=== PATIENT | female | born 1995 | race Caucasian/White ===

== ENCOUNTER 2024-12-15 06:05 | Emergency (ER) | payer SELFPAY ==
--- NOTE | 2024-12-15 06:08 | DI.RAD.S_ITS ---
PROCEDURE: XR CHEST 1V INDICATIONS: cough TECHNIQUE: One view of the chest was acquired. COMPARISON: None. FINDINGS: Surgical changes and devices: None. Lungs and pleura: Minimal streaky right lower lobe opacities. Mediastinum: Mediastinal contours appear normal. Heart size is normal. Bones and chest wall: No suspicious bony lesions. Overlying soft tissues appear unremarkable. IMPRESSION: Minimal right lower lobe streaky opacities possibly representing developing pneumonia. The above findings are concordant with preliminary report. Dictated by: Erica Pratt M.D. on 12/15/2024 at 8:21 Approved by: Erica Pratt M.D. on 12/15/2024 at 8:21
--- NOTE | 2024-12-15 06:12 | ED.URI ---
HPI - URI/Sore Throat General Chief Complaint: Upper Respiratory Symptoms Stated Complaint: Painful cough, phlegm, losing voice, x4days Time Seen by Provider: 12/15/24 06:10 History of Present Illness HPI Narrative: 29-year-old female without any significant past medical history presenting to the emergency department from home for evaluation of cough, sore throat. She states that this started on Friday, states that her symptoms have not gotten any better therefore decided come into the ED for further evaluation treatment. She states that she has been producing a lot of phlegm and feels like she is having a lot of chest congestion. However she denies any actual chest pain or shortness of breath. She denies any headache visual disturbances fever chills nausea vomiting abdominal pain or any other GI/ symptoms time. Related Data Previous Rx's Medication Instructions Recorded benzonatate 100 mg capsule 100 mg PO BID PRN cough 1 week #14 12/15/24 caps doxycycline hyclate 100 mg capsule 100 mg PO BID 5 days #10 caps 12/15/24 methylprednisolone 4 mg tablets in See Rx Instructions PO .COMPLEX 12/15/24 a dose pack (Medrol ([facility])) #21 ea Review of Systems Review of Systems Narrative: General: Denies fever, chills, weight loss HEENT: Positive sore throat, Denies headache, eye drainage, eye irritation, head trauma, voice change Cardiovascular: Denies any chest pain, palpitations, tachycardia Respiratory: Positive cough, Denies any shortness of breath, wheeze, stridor GI/: Denies any abdominal pain, nausea, vomiting, diarrhea, bright red blood per rectum, melanotic stools, urinary frequency, urinary retention, dysuria, hematuria MSK: Denies any joint pain, muscle pains, swelling Skin: Denies any rashes, lesions, discoloration Neuro: Denies any headache, lightheadedness, dizziness, fainting, weakness Psych: Denies SI/HI Exam Narrative Exam Narrative: General: Cooperative, well-developed, not in acute distress HEENT: Posterior oropharynx clear without any signs of obstruction uvula midline patient is speaking full sentences protecting airway, mild erythema noted but no purulent discharge noted Normocephalic, atraumatic, PERRLA, normal sclera, eyelids normal Neck: Active full range of motion, atraumatic Chest: Normal to inspection, negative crepitus, no overlying erythema ecchymosis Respiratory: Patient coughing on exam, Normal respiratory effort, not in acute respiratory distress, clear to auscultation bilaterally negative wheeze, tachypnea, rhonchi, rales Cardiology: Regular rate rhythm negative gallop, murmur, rubs GI/: No tenderness to palpation, soft, non rigid, normal to inspection, exam deferred MSK: Full active range of motion in all 4 extremities, atraumatic, no tenderness to palpation of any bony prominences Skin: No rashes or lesions noted Neuro: Alert awake oriented x3, moves all 4 extremities spontaneously, cranial nerves intact, able to answer all questions appropriately follows commands appropriately Psych: Cooperative, negative suicidal or homicidal ideations Initial Vital Signs Initial Vital Signs: Vital Signs Temperature 98.3 F 12/15/24 06:24 Pulse Rate 98 H 12/15/24 06:24 Respiratory Rate 16 12/15/24 06:24 Blood Pressure 149/96 H 12/15/24 06:24 Pulse Oximetry 99 12/15/24 06:24 Oxygen Delivery Method Room Air 12/15/24 06:24 Course Orders Ordered: ED Orders 12/15/24 06:08 CXR [XR chest 1V] Stat 12/15/24 06:15 Urine Culture Stat Urine Microscopic Stat 12/15/24 06:20 Covid-19 + FLU A/B + RSV - PCR Stat Strep Grp A by PCR Rapid Stat Vital Signs Vital signs: Vital Signs - 8 hr 12/15/24 06:24 Temperature 98.3 F Pulse Rate 98 H Respiratory Rate 16 Blood Pressure 149/96 H Pulse Oximetry 99 Oxygen Delivery Method Room Air MDM - URI/Sore Throat Differential Diagnosis Differential diagnosis: Likely upper respiratory infection, viral infection, bronchitis, influenza and other (Strep pharyngitis, pneumonia) Lab Data Labs: Lab Results 12/15/24 12/15/24 Range/Units 06:15 06:20 Urine RBC 0-1/hpf (0-5/HPF) Urine WBC 1-5/hpf (0-5/HPF) Ur Squamous Epith Cells 10-30 /hpf H (0-5/HPF) Urine Bacteria Many (>30) H (None) Ur Culture Indicated? Specimen cultured Vol Urine Centrifuged 10ml (spun) Group A Strep (PCR) Negative (Negative) Point of Care Testing Test Results Negative Urine Dip Bedside Urine Glucose Negative Bedside Urine Bilirubin - Negative Bedside Urine Ketone - Negative Urine Specific Lamy 1.020 Bedside Urine Occult Blood - Negative Bedside Urine pH 6.0 Bedside Urine Protein - Negative Bedside Urine Urobilinogen - Negative Bedside Urine Nitrite - Negative Bedside Urine Leukocytes + 70 Esterase MDM Narrative Medical decision making narrative: 29-year-old female without any significant past medical history presenting from home for evaluation of cough sore throat ongoing persistent for the past 4 days, she states that symptoms have not gotten any better therefore decided come into the ED for further evaluation treatment. On exam patient well-appearing nontoxic not requiring any supplemental oxygen, clear breath sounds bilaterally to anterior posterior lung mccoy. Mild erythema to the posterior oropharynx however patient is speaking full sentences protecting airway no voice changes no stridor no trismus. Patient had x-ray of her chest, strep test and respiratory panel performed here in the emergency department. Patient with strep negative. Chest x-ray showing possible early infiltrate of the right middle lobe therefore we will start patient on antibiotics, patient not requiring any supplemental oxygen, patient well-appearing nontoxic was given strict return precautions she verbalized understanding of this and agrees to being discharged home with outpatient follow up Discharge Plan Departure Patient Disposition: Home Clinical Impression: Pneumonia Activity Restrictions/Additional Instructions: Please follow up with the primary care doctor Please read the discharge instructions sheet carefully and bring all papers to all doctor follow-up visits, as it may contain information that your doctor may want to see. Disease processes change and evolve, if your symptoms worsen or if you develop any new symptoms that are concerning to you please return for evaluation. Your evaluation today does not show any evidence of any life-threatening/serious illnesses requiring admission to the hospital or surgery. Please follow-up with your doctor for re-evaluation in approximately 1 day. Seek immediate medical attention for any worrisome symptoms. *If you do not have a primary care provider please contact the [facility] Resource line at [phone]. They will ask some questions about your medical history and help get you set up with a doctor in the community. Prescriptions: New methylprednisolone [Medrol ([facility])] 4 mg tablets,dose pack See Rx Instructions .ROUTE .COMPLEX Qty: 21 0RF Rx Instructions: for 6 days benzonatate 100 mg capsule 100 mg PO BID PRN (Reason: cough) 7 Days Qty: 14 0RF doxycycline hyclate 100 mg capsule 100 mg PO BID 5 Days Qty: 10 0RF Stand Alone Forms: Patient Portal/API/Survey
[2024-12-15 06:24] VITALS: BP 149/96; PULSE 98; RESP 16; TEMP 36.8; O2SAT 99; BMI 43.0
[2024-12-15 06:29] LABS: Bacteria Urine Many (>30); Culture Indicated Urine Specimen Cultured; RBC Urine 0-1/HPF (0-5/HPF); Squamous Epithelial Cell Urine 10-30 /HPF (0-5/HPF); Urine Volume 10mL (spun); WBC Urine 1-5/HPF (0-5/HPF)
[2024-12-15 06:32] LABS: Strep Grp A by PCR Rapid Negative (Negative)
[2024-12-15 07:08] LABS: Influenza A - CEPHEID Flu A NEGATIVE (NEGATIVE); Influenza B - CEPHEID Flu B NEGATIVE (NEGATIVE); Respiratory Syncytial Virus Negative (Negative)
[2024-12-15 07:09] LABS: COVID-19 CEPHEID 4-PLEX PCR Negative (Negative)
[2024-12-15] MEDS: DOXYCYCLINE HYCLATE 100 MG TABLET PO (07:21)
[2024-12-15 07:30] VITALS: BP 128/68; PULSE 98; RESP 18; TEMP 36.8; O2SAT 99
== END 2024-12-15 07:30 | disposition home or self-care (01) ==
PROVIDERS: Emergency Provider Student in an Organized Health Care Education/Training Program
DX: J18.9 Pneumonia, unspecified organism (principal)
CPT/HCPCS: 0241U; 71045; 81003; 81015; 81025; 87086; 87651; 99283

== ENCOUNTER 2025-04-20 06:10 | Emergency (ER) | payer OTHER, SELFPAY ==
[2025-04-20 06:25] VITALS: BP 169/76; PULSE 95; RESP 20; TEMP 37.4; O2SAT 97; BMI 49.4
[2025-04-20 07:19] LABS: COVID-19 CEPHEID 4-PLEX PCR Negative (Negative); Influenza A - CEPHEID Flu A NEGATIVE (NEGATIVE); Influenza B - CEPHEID Flu B NEGATIVE (NEGATIVE)
--- NOTE | 2025-04-20 07:49 | ED.URI ---
HPI - URI/Sore Throat General Chief Complaint: Shortness of Breath/Dyspnea Stated Complaint: Coughing, hard time breathing x3 days Time Seen by Provider: 04/20/25 06:26 Source: patient, RN notes reviewed and old records reviewed Mode of arrival: Ambulatory Limitations: no limitations History of Present Illness HPI Narrative: 30-year-old female no reported medical issues who has complaint of nasal congestion cough has a little bit of productive sputum. She states she was having fevers but that has been improving. She has had nasal congestion. She notes sensation of shortness of breath at times. She describes some chest discomfort when she coughs. She was having nausea and vomiting earlier in the week but that has resolved. She had some diarrhea that is also resolved. She denies any swelling of extremities. Denies any new urinary symptoms. States no daily medications. She has never required a inhaler. Patient states no prior surgeries. No known drug allergies. No tobacco, no regular alcohol or recreational drugs. Related Data Previous Rx's ?Medication ?Instructions ?Recorded methylprednisolone 4 mg tablets in See Rx Instructions PO .COMPLEX 12/15/24 a dose pack (Medrol ([facility])) #21 ea Allergies Allergy/AdvReac Type Severity Reaction Status Date / Time No Known Drug Allergies Allergy Verified 04/20/25 06:25 Review of Systems Review of Systems ROS Unobtainable: All systems reviewed & are unremarkable except as noted in HPI and below Exam Narrative Exam Narrative: GEN: well nourished, well appearing female, alert and oriented x 3, patient appears to be in mild distress. HEENT: Atraumatic, pupils are equal round reactive to light, extraocular movements are intact, mild rhinorrhea bilaterally, there is no conjunctival pallor. Throat is clear without any exudates, erythema, tonsillar enlargement or uvular deviation, patient does have some cobblestoning. No stridor. No muffled voice. HEART: Regular rate and rhythm without murmur, clicks, rubs. No edema. No JVD. LUNGS:Lungs clear to auscultation, no wheezes, rales, crackles, chest moves symmetrically, no tachypnea or accessory muscle use. Patient's speaks in full sentences. ABD:bowel sounds normal, soft, non-tender, no guarding, rebound, rigidity, no masses noted, no hepatosplenomegaly :No CVA tenderness MSCL: Non-tender, full range of motion, normal gait NEURO:CN 2-12 intact, sensation normal Initial Vital Signs Initial Vital Signs: Vital Signs Temperature 99.3 F 04/20/25 06:25 Pulse Rate 95 H 04/20/25 06:25 Respiratory Rate 20 04/20/25 06:25 Blood Pressure 169/76 H 04/20/25 06:25 Pulse Oximetry 97 04/20/25 06:25 Oxygen Delivery Method Room Air 04/20/25 06:25 Course Orders Ordered: ED Orders 04/20/25 06:24 Covid-19 + FLU A/B + RSV - PCR Stat Vital Signs Vital signs: Vital Signs - 8 hr 04/20/25 06:25 04/20/25 08:05 Temperature 99.3 F Pulse Rate 95 H 91 H Respiratory Rate 20 Blood Pressure 169/76 H 177/94 H Pulse Oximetry 97 99 Oxygen Delivery Method Room Air Room Air MDM - URI/Sore Throat Lab Data Labs: Lab Results 04/20/25 Range/Units 06:24 SARS-CoV-2 (PCR) Negative (Negative) Influenza A (RT-PCR) Flu a negative (NEGATIVE) Influenza B (RT-PCR) Flu b negative (NEGATIVE) RSV (PCR) Negative (Negative) MDM Narrative Medical decision making narrative: COVID/influenza/RSV is negative. 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 Patient is overall well-appearing has a suspect upper respiratory infection as source of her symptoms. Discussed return precautions. Discharge Plan Departure Patient Disposition: Home Clinical Impression: Upper respiratory infection Instructions: DI for Viral Upper Respiratory Infection -- Adult Activity Restrictions/Additional Instructions: Please follow up as needed. You appear to likely have a viral infection causing your symptoms, these typically last 7-10 days. Please return if you have new or worsening symptoms, chest pain, increasing shortness of breath, any lightheadedness or passing out, coughing up blood, new swelling of extremities or other new or concerning changes. Prescriptions: No Action methylprednisolone [Medrol ([facility])] 4 mg tablets,dose pack See Rx Instructions .ROUTE .COMPLEX Qty: 21 0RF Rx Instructions: for 6 days Stand Alone Forms: Patient Portal/API, Work Release Note
[2025-04-20 08:05] VITALS: BP 177/94; PULSE 91; O2SAT 99
== END 2025-04-20 08:05 | disposition home or self-care (01) ==
PROVIDERS: Family Medicine; Emergency Provider Emergency Medicine
DX: J06.9 Acute upper respiratory infection, unspecified (principal)
CPT/HCPCS: 87637; 99281; 99282

== ENCOUNTER 2025-07-11 06:00 | Emergency (ER) | payer OTHER, SELFPAY ==
[2025-07-11 06:26] VITALS: BP 140/92; PULSE 125; RESP 20; TEMP 36.3; O2SAT 100; BMI 41.8
--- NOTE | 2025-07-11 06:50 | PC.NURSE ---
abscess to coccyx area pt states she has had them before was able to get them to drain and they were not as big as this one is
--- NOTE | 2025-07-11 06:57 | PC.NURSE ---
Dr Barrett in room I/D pt's abscess
--- NOTE | 2025-07-11 07:03 | ED.SKABFB ---
HPI - Skin/Abscess/Foreign Bdy General Chief complaint: Skin/Abscess/Foreign Body Stated complaint: Swollen Tailbone, Back Pain Time Seen by Provider: 07/11/25 06:17 Mode of arrival: Ambulatory History of Present Illness HPI narrative: 30-year-old female who for the past 3 days been dealing with some pain over the superior perirectal area. She has had a pilonidal cyst in the past. Currently the area is a lot more tender and she feels as if it is much worse than in the past. She denies any fever or chills or other systemic symptoms. Related Data Previous Rx's ?Medication ?Instructions ?Recorded methylprednisolone 4 mg tablets in See Rx Instructions PO .COMPLEX 12/15/24 a dose pack (Medrol ([facility])) #21 ea cephalexin 500 mg capsule 500 mg PO BID #14 caps 07/11/25 hydrocodone 5 mg-acetaminophen 325 1 tab PO Q4-6H PRN pain #10 tabs 07/11/25 mg tablet Allergies Allergy/AdvReac Type Severity Reaction Status Date / Time No Known Drug Allergies Allergy Verified 04/20/25 06:25 Review of Systems Review of Systems ROS Unobtainable: All systems reviewed & are unremarkable except as noted in HPI and below Exam Narrative Exam Narrative: perirectal exam: Patient has a indurated abscess that is red, warm and is approximately 6-7 cm in circumference. Initial Vital Signs Initial Vital Signs: Vital Signs Temperature 97.4 F L 07/11/25 06:26 Pulse Rate 125 H 07/11/25 06:26 Respiratory Rate 20 07/11/25 06:26 Blood Pressure 140/92 H 07/11/25 06:26 Pulse Oximetry 100 07/11/25 06:26 Oxygen Delivery Method Room Air 07/11/25 06:26 Procedures Abscess I/D I&D #1: Time of procedure: 07:12 Site: derian-rectal Local Anesthetic: lidocaine 2% Amount of anesthesia used (mL): 7 Technique: incised with #11 blade Amount of fluid expressed (mL): 5 Irrigation: Yes Packing used?: iodoform Complications: other (none) Course Orders Ordered: ED Orders 07/11/25 07:19 Wound Culture and Gram Stain Stat Vital Signs Vital signs: Vital Signs - 8 hr 07/11/25 06:26 Temperature 97.4 F L Pulse Rate 125 H Respiratory Rate 20 Blood Pressure 140/92 H Pulse Oximetry 100 Oxygen Delivery Method Room Air MDM - Skin/Abscess/Foreign Bdy MDM Narrative Medical decision making narrative: 30-year-old female dealing with a obvious pilonidal abscess for the past 3 days has been getting worse. I&D performed as per above. Patient tolerated procedure well. Culture taken and packed with iodoform gauze. Patient will follow up in a couple of days for wound check up. Advised to come sooner if infection or pain worsens. Discharge Plan Departure Patient Disposition: Home Clinical Impression: Pilonidal abscess Instructions: Pilonidal Cyst Activity Restrictions/Additional Instructions: Come back in 2 days for wound checkup. Come back sooner if pain or worsening infection. Prescriptions: New cephalexin 500 mg capsule 500 mg PO BID Qty: 14 0RF hydrocodone-acetaminophen 5-325 mg tablet 1 tab PO Q4-6H PRN (Reason: pain) Qty: 10 0RF No Action methylprednisolone [Medrol ([facility]ine)] 4 mg tablets,dose pack See Rx Instructions .ROUTE .COMPLEX Qty: 21 0RF Rx Instructions: for 6 days Stand Alone Forms: Patient Portal/API, Work Release Note
[2025-07-11 07:25] VITALS: PULSE 101; RESP 18; O2SAT 97
== END 2025-07-11 07:26 | disposition home or self-care (01) ==
PROVIDERS: Emergency Provider Family Medicine
DX: L05.01 Pilonidal cyst with abscess (principal); M54.50 Low back pain, unspecified
CPT/HCPCS: 10080; 87070; 87205; 99282; 99283

== ENCOUNTER 2025-07-13 06:14 | Emergency (ER) | payer OTHER, SELFPAY ==
[2025-07-13 06:42] VITALS: BP 168/91; PULSE 93; RESP 16; TEMP 36.4; O2SAT 99; BMI 41.8
== END 2025-07-13 07:30 | disposition left against medical advice (07) ==
PROVIDERS: Emergency Provider Emergency Medicine
DX: Z53.21 Procedure and treatment not carried out due to patient leaving prior to being seen by health care provider (principal)
CPT/HCPCS: 99281